=== PATIENT | male | born 1950 | race Caucasian/White ===

== ENCOUNTER 2016-11-08 18:51 | Emergency (ER) | payer OTHER ==
--- NOTE | 2016-11-08 19:07 | PROVIDER DOCUMENTATION ---
HPI-Male Problem - General Source: patient, family - History of Present Illness-Male Location of Complaint: reports: right flank Radiation: reports: none Quality of Pain: reports: aching, pressure, stabbing, tearing, tightness Severity in ED: reports: severe Onset/Duration: reports: abrupt, just prior to arrival, 1/2 hour ago Timing: reports: constant, getting worse Context/Activities at Onset: reports: none Urinary Symptoms: reports: low back pain Associated Symptoms: reports: back/neck pain, nausea. denies: constipation, diarrhea, dizziness, fever/chills, muscle aches, vomiting Similar Symptoms Previously?: Yes (renal stones) Recently seen or treated by another doctor?: No <Lyric Colby - Last Filed: 11/08/16 19:43> <Jeancarlos Morales - Last Filed: 11/08/16 21:33> - General Chief Complaint: Flank Pain Stated Complaint: KIDNEY STONE Time Seen by Provider: 11/08/16 19:07 Allergies/Adverse Reactions: Patient Allergies Allergy/AdvReac Type Severity Reaction Status Date / Time celecoxib [From Celebrex] Allergy Unknown Verified 11/08/16 19:08 Penicillins Allergy Unknown Verified 11/08/16 19:06 rofecoxib [From Vioxx] Allergy Unknown Verified 11/08/16 19:08 Home Medications: Home Medication List Medication Instructions Recorded Confirmed Last Taken Type Hydrocodone/APAP 7.5 mg/325 mg 1 each PO Q6H PRN PRN #14 tablet 11/08/16 Unknown Rx [[employer]-7.5] Lisinopril [Zestril] 20 mg PO DAILY 11/08/16 11/08/16 Unknown History Ondansetron Odt [Zofran 8Mg Odt] 8 mg PO Q8H PRN PRN #20 tablet 11/08/16 Unknown Rx Tamsulosin [Flomax] 0.4 mg PO DAILY #20 capsule 11/08/16 Unknown Rx - History of Present Illness-Male Nature of Presenting Problem: Pt reports acute onset of right flank pain about 30 minutes [employer], has long h/o renal stones and this pain is similar to prior renal stones. (+) nausea, (-) vomiting at this time. (Lyric Colby) Review of Systems - Adult - REVIEW OF SYSTEMS - ADULT Constitutional: denies: chills, fever Cardiovascular: reports: no symptoms reported Respiratory: reports: no symptoms reported Gastrointestinal: reports: nausea. denies: vomiting Genitourinary: reports: other (flank pain, pain similar to prior renal stones in right flank) Musculoskeletal: reports: back pain (right flank pain) All Other Systems: Reviewed and Negative <Thiot,Lyric M. - Last Filed: 11/08/16 19:43> Past History - Adult - PAST MEDICAL HISTORY-ADULT Review of Records: reports: Old Records Reviewed, Nursing Assessment Review, Medications Reviewed, Social history reviewed & non-contributory. Genitourinary: reports: kidney stones - PRIOR SURGERIES/PROCEDURES Surgical/Procedure History: reports: orthopedic (extremity) - SOCIAL HISTORY Smoking: non-smoker Living Situation: family <ThiotLyric M. - Last Filed: 11/08/16 19:43> Physical Exam-General - PHYSICAL EXAM-ADULT Initial Vital Signs Reviewed: Yes - CONSTITUTIONAL General Appearance: appears well, alert, moderate distress - EYES Eyes: PERRL/EOMI, pink conjunctivae - HEAD, EARS, NOSE, MOUTH & THROAT HENMT: normocephalic/atraumatic, moist mucous membranes - NECK Neck: non-tender, full range of motion, supple - RESPIRATORY Respiratory: chest non-tender, lungs clear, normal breath sounds - CARDIOVASCULAR Cardiovascular: regular rate, rhythm, no edema - GASTROINTESTINAL (ABDOMEN) Abdominal Exam: normal bowel sounds, soft, tenderness (right flank with moderate tenderness to palpation) - MUSCULOSKELETAL Back Exam: normal inspection, CVA tenderness (right) Extremity: normal gait, normal inspection - SKIN Integumentary: normal color, normal turgor, warm/dry. negative: rash - NEUROLOGIC Neurologic: grossly normal, no motor/sensory deficits - PSYCHIATRIC Psych/Mental Status: normal thought content, normal thought process <Thiot,Lyric M. - Last Filed: 11/08/16 19:43> Progress - CHANGE OF SHIFT REPORT (ED Provider) Report Given and Care Transferred to:: [facility] Time of Transfer: 19:44 Items Pending: Labs, CT/MRI Results Tentative Impression of Patient: renal stone, UTI <Thiot,Lyric M. - Last Filed: 11/08/16 19:43> - CT/MRI 1 CT Study: Renal Stone Impression: Abnormal (5mm obstructing stone with mild hydronephrosis per Radiologist) <Jeancarlos Morales - Last Filed: 11/08/16 21:33> - PLAN OF CARE/RESULTS Progress/Plan/Lab Results: Pt is allergic to NSAIDs so treated pain with dilaudid for possible renal stone. Pt requests fentanyl specifically as "they give it to me at [facility] all the time"-- reviewed medical records and found that pt has no ER records prior to today's visit other than EGD in 2016. Declined pt request for fentanyl. Recommended allowing dilaudid to work--pt is observed reclining on treatment table in NAD as compared to his obvious distress prior to administration of Dilaudid and reglan. (Lyric Colby) Patient requesting to go home. Instructed to follow up with his urologists first thing in the morning. Patient agreed. Orders Category Date Time Status Saline Loc NOW Care 11/08/16 19:09 Active RENAL STONE SEARCH [CT] Stat Exams 11/08/16 19:[address] W/POSS RFLX CULT [URINALYSIS] Stat Lab 11/08/16 19:10 Uncollected 0.9% Sodium Chloride Inj [Ns] 1,000 ml Med 11/08/16 19:10 Discontinued IV 999 mls/hr Hydromorphone [Dilaudid] Med 11/08/16 19:10 Discontinued 0.5 mg IV NOW ONE Hydromorphone [Dilaudid] Med 11/08/16 20:03 Discontinued 0.5 mg IV NOW ONE Hydromorphone [Dilaudid] Med 11/08/16 20:05 Discontinued 1 mg .ROUTE .STK-MED ONE Metoclopramide [Reglan] Med 11/08/16 19:10 Discontinued 10 mg IV NOW ONE Vital Signs Temp Pulse Resp BP Pulse Ox 11/08/16 19:00 97.3 F L 98 H 18 135/70 97 celecoxib [From Celebrex] Allergy (Verified 11/08/16 19:08) Unknown Penicillins Allergy (Verified 11/08/16 19:06) Unknown rofecoxib [From Vioxx] Allergy (Verified 11/08/16 19:08) Unknown Lisinopril [Zestril] 20 mg PO DAILY 11/08/16 (Jeancarlos Morales) Departure <Thiot,Lyric M. - Last Filed: 11/08/16 19:43> - Departure Time of Disposition Order: 20:42 Certified Medical Emergency: Emergent <Jeancarlos Morales - Last Filed: 11/08/16 21:33> - Departure DIAGNOSIS: Kidney stone Disposition: HOME 01 Condition: Stable Additional Instructions: ED Follow Up Instructions: You have been treated by a care provider in the Emergency Department. These instructions are being provided to you so you can have an understanding of how to care for yourself upon discharge. Upon discharge from the Emergency Department, you are responsible for making arrangements for follow-up care by a physician of your choice. Take all prescribed medications as directed. Return to the Emergency Department immediately for any new or worsening symptoms. You may call the Physician Referral phone number at [phone] to obtain a list of Physicians who are taking new patients. Prescriptions: Tamsulosin [Flomax] 0.4 mg PO DAILY #20 capsule Hydrocodone/APAP 7.5 mg/325 mg [[employer]-7.5] 1 each PO Q6H PRN PRN #14 tablet PRN Reason: Pain Ondansetron Odt [Zofran 8Mg Odt] 8 mg PO Q8H PRN PRN #20 tablet PRN Reason: Nausea Referrals: Russ Niño Scribe [Primary Care Provider] - Sen Rueda DO [STAFF PHYSICIAN] - Forms: Return to School/Parent Work Instructions: Acetaminophen; Hydrocodone tablets or capsules, Ondansetron tablets, Kidney Stones, [id number], Tamsulosin capsules Attestation - Physician/ KATTY Attestation Patient care was provided by Advanced Practice Provider:: Yes Advanced Practice Provider:: Lyric Colby Advanced Practice Provider documentation review:: The Mid-level provider documentation, treatment plan and medical decision making was reviewed by the physician who agrees with all treatment and medical decision making by the P. <Lyric Colby - Last Filed: 11/08/16 19:43> - Physician/ KATTY Attestation #2 Patient care was provided by Advanced Practice Provider:: Yes Advanced Practice Provider:: Jeancarlos Morales <Jeancarlos Morales - Last Filed: 11/08/16 21:33> Physician Attestation - Physician Attestation I, the provider, attest to the following statement:: Lyric Colby Physician documentation Attestation:: This documentation recorded by the scribe accurately reflects the service I personally performed and the decisions made by me. <Lyric Colby - Last Filed: 11/08/16 19:43>
[2016-11-08] MEDS ORDERED: DILAUDID IV ONE ×2 (19:10→20:03)
[2016-11-08] MEDS ORDERED: NS 1,000 ML IV ONE (19:10)
[2016-11-08] MEDS ORDERED: REGLAN IV ONE (19:10)
[2016-11-08] MEDS ORDERED: DILAUDID ONE (20:05)
[2016-11-08 20:51] VITALS: BP 116/68
--- NOTE | 2016-11-09 00:41 | Diag Imaging Result Document ---
PROCEDURE NAME: RENAL STONE SEARCH - 11/08/2016 CT ABDOMEN AND PELVIS: A CT dose reduction protocol was used. COMPARISON: None. FINDINGS: There is an obstructing right UVJ stone. This measures 5 mm. There is mild right hydroureteronephrosis. There are numerous cysts in the liver, greater than 40. Several of these are large, measuring up to 13 cm. There are a couple of left-sided renal cysts but no right-sided cysts. There is diffuse atrophy of the pancreas. IMPRESSION: 1. Obstructing right UVJ stone. 2. Polycystic liver. 3. A few left renal cysts. [facility]
== END 2016-11-08 20:58 | disposition home or self-care (01) ==
LOC: P.ED 18:51
DX: N20.0 Calculus of kidney (principal); R10.9 Unspecified abdominal pain; R11.0 Nausea; M54.9 Dorsalgia, unspecified; R10.819 Abdominal tenderness, unspecified site; Z79.899 Other long term (current) drug therapy; Z87.442 Personal history of urinary calculi
CPT/HCPCS: 74176; J1170; J2765; J7030